=== PATIENT | male | born 1950 | race Caucasian/White ===

== ENCOUNTER 2016-09-04 12:07 | Emergency (ER) | payer OTHER, MEDICAID ==
[~2016-09-04] VITALS: Ht 157.5 cm; Wt 72.5 kg
[~2016-09-04 12:07] MED LIST: ASPI325T4 PO; ATOR40TA68 PO; BENA1POW2 MC; GABA-528 PO; INSU100C SC; LANT3I SC; ULT50 PO
[2016-09-04 12:18] VITALS: Ht 157.5 cm; Wt 72.5 kg
--- NOTE | 2016-09-04 13:13 | RADRPT ---
PROCEDURE: XR Ankle. CLINICAL INDICATION: Pain TECHNIQUE: Three views of the left ankle were performed. COMPARISON: None. FINDINGS: There is no acute osseous or articular abnormality. No evidence for fracture. Bone mineral density is preserved. The articular surfaces are smooth without evidence of marginal erosions. The ankle mo rtise is preserved. Enthesopathic changes are noted at the Achilles insertion and plantar fascia or igin. Atherosclerotic vascular calcifications are present. Soft tissue swelling is seen anterior to the tibiotalar joint. IMPRESSION: 1. No acute osseous abnormality. 2. Anterior soft tissue swelling. RPTAT: VV .Galileo Schaffer MD, MD Date Time Electronically viewed and signed by .Galileo Schaffer MD, on 09/04/2016 13:12 .d/
[2016-09-04] MEDS ORDERED: NAPR-260 PO (13:35)
[2016-09-04 14:30] VITALS: BP 120/60; PULSE 75; RESP 18; TEMP 98
--- NOTE | 2016-09-04 15:16 | ERD ---
DATE OF SERVICE: 09/04/2016 HISTORY OF PRESENT ILLNESS: Patient is a 65-year-old male coming in complaining of a mechanical fal l injury to his left ankle. Patient states that he fell 2 days ago. He has no weakness. He has pa in with ambulation but he is ambulating without any assistance. He has not taken medications for hi s symptoms. He has no numbness or tingling. MEDICAL HISTORY: Diabetes, insulin-dependent. ALLERGIES TO MEDICATIONS: DENIES. SURGICAL HISTORY: Hernia surgery. SOCIAL HISTORY: Denies. REVIEW OF SYSTEMS: A 12-point review of systems was done. Refer to HPI for positives, all other sy stems negative. PHYSICAL EXAMINATION VITAL SIGNS: Temperature 98, pulse 76, blood pressure is 117/61, respiratory 18, O2 sat 96% on room air. Pain intensity is 0/10. GENERAL: The patient is well-appearing, well-nourished, no acute distress. HEENT: Atraumatic. Conjunctivae are pink. Pupils equal, round, and reactive to light. There is no s cleral icterus. Tympanic membranes clear bilaterally. Oropharynx clear. No nystagmus or photophobia . CHEST: Clear to auscultation bilaterally. There are no rales, wheezes or rhonchi. HEART: Regular rate and rhythm. No murmurs, clicks, rubs or gallops. No S3 or S4. ABDOMEN: Soft, nontender and nondistended. Good bowel sounds. No rebound or guarding. No gross nova tonitis. No gross organomegaly or masses. No Diaz sign or McBurney point tenderness. EXTREMITIES: The patient has mild tenderness over the ankles. There is no erythema. The patient h as normal flexion and extension. Strength is within normal limits. There is no crepitance felt on exam. Pulses are intact. Compartments soft. EMERGENCY ROOM COURSE: The patient had 3-view x-ray done of the left ankle which showed no acute os seous abnormality to anterior soft tissue swelling. Patient was placed in an Juan A wrap. Patient was neurovascularly intact pre- and post-splint application. DIAGNOSIS: Ankle sprain. MEDICAL DECISION MAKING: I have low suspicion for acute fracture or dislocation. Low suspicion for tendon or ligament injury or rupture, low suspicion for a vascular injury, low suspicion for compar tment syndrome. DISCHARGE: The patient is discharged stable. Patient is given a prescription for naproxen and told to follow up with primary care within 1 to 2 days for reevaluation. The patient was told if sympto ms progress or worsen to return to the ER. All other questions answered at time of discharge. Disc harge summary given at the time of departure. Patient understood and complied with plan. Dictated By: JONO TORRES for VLAD BUENROSTRO/LUANN Conf#: [id number] DID#: [id number]
== END 2016-09-04 14:25 | disposition home or self-care (01) ==
LOC: FTE 12:07
DX: S93.402A Sprain of unspecified ligament of left ankle, initial encounter (principal); E11.9 Type 2 diabetes mellitus without complications; I10 Essential (primary) hypertension; W18.39XA Other fall on same level, initial encounter; Y92.9 Unspecified place or not applicable
CPT/HCPCS: 73610

== ENCOUNTER 2017-11-25 07:59 | Inpatient (IN) | END 2017-11-29 12:40 | disposition home or self-care (01) | DRG 418 ==

== ENCOUNTER 2018-08-10 11:44 | Emergency (ER) | END 2018-08-10 14:15 | disposition home or self-care (01) ==